=== PATIENT | female | born 2000 | race Caucasian/White ===

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

== ENCOUNTER 2021-01-02 16:30 | Emergency (ER) | payer MEDICAID ==
[~2021-01-02] VITALS: Ht 160 cm; Wt 99.8 kg
== END 2021-01-02 19:40 | disposition home or self-care (01) ==
LOC: ED 16:30
DX: K52.9 Noninfective gastroenteritis and colitis, unspecified (principal)
CPT/HCPCS: 80053; 83735; 84703; 85025; 99284